=== PATIENT | male | born 1990 | race African-American/Black ===

== ENCOUNTER 2019-07-27 11:06 | Emergency (ER) | payer SELFPAY ==
[2019-07-27 11:15] VITALS: BP 128/103
[2019-07-27] MEDS ORDERED: METOCLOPRAMIDE HCL ORAL SOLN 10 MG/10 ML UDCUP PO ONE (11:19)
[2019-07-27] MEDS ORDERED: MAG HYDROX/AL HYDROX/SIMETH SUSP 30 ML UDCUP PO ONE (11:19)
[2019-07-27] MEDS ORDERED: LIDOCAINE 2% VISCOUS SOLN 15 ML UDCUP PO ONE (11:19)
[2019-07-27] MEDS ORDERED: NORMAL SALINE 1000 ML 1,000 ML IV PRN (11:21)
--- NOTE | 2019-07-27 11:23 | ER Document Report ---
ED Medical Screen (RME) - General Chief Complaint: Abdominal Pain Stated Complaint: ABDOMINAL PAIN Time Seen by Provider: 07/27/19 11:16 Mode of Arrival: Wheelchair Information source: Patient Notes: 28-year-old male presented to ED for complaint of severe gastritis. He states it started about a week ago. He states he has not had any nausea and vomiting. He states it started again this morning. He states he got better from last week and then returned again today. He states last week they told him he did not know what was causing it except maybe it was a smoking and drinking and his marijuana. He is alert oriented respirations regular nonlabored. He is moaning and very agitated. He states he has a history of asthma and gastritis and has not followed with a GI doctor as yet. I have greeted and performed a rapid initial assessment of this patient. A comprehensive ED assessment and evaluation of the patient, analysis of test results and completion of medical decision making process will be conducted by an additional ED providers. - Related Data Allergies/Adverse Reactions: orange juice Allergy (Verified 07/27/19 11:15) peanut Allergy (Verified 07/27/19 11:15) Penicillins Allergy (Verified 07/27/19 11:15) Physical Exam - Vital signs Vitals: Temp Pulse BP Pulse Ox 98.7 F 133 H 128/103 H 100 07/27/19 11:12 07/27/19 11:12 07/27/19 11:12 07/27/19 11:12 Course - Vital Signs Vital signs: Temp Pulse Resp BP Pulse Ox 98.7 F 133 H 128/103 H 100 07/27/19 11:12 07/27/19 11:12 07/27/19 11:12 07/27/19 11:12
[2019-07-27] MEDS: ONDANSETRON HCL INJ/PF 4 MG/2 ML SDV IV ONE ×2 (11:32→11:54)
--- NOTE | 2019-07-27 11:44 | ER Document Report ---
ED GI/ - General Chief Complaint: Abdominal Pain Stated Complaint: ABDOMINAL PAIN Time Seen by Provider: 07/27/19 11:16 Mode of Arrival: Wheelchair Notes: I signed up for the patient and went down to evaluate the patient and was informed by nursing that patient had thrown up the GI cocktail that was ordered for him out of the triage process, he then yelled at the staff and walked out. I did not have a chance to evaluate this patient or otherwise clinically treat him - Related Data Allergies/Adverse Reactions: orange juice Allergy (Verified 07/27/19 11:15) peanut Allergy (Verified 07/27/19 11:15) Penicillins Allergy (Verified 07/27/19 11:15) Past Medical History - General Information source: Patient - Social History Smoking Status: Current Every Day Smoker Chew tobacco use (# tins/day): No Frequency of alcohol use: Social Drug Abuse: Marijuana Family History: Other - unknown, patient eloped prior to my evlauation Patient has homicidal ideation: No Physical Exam - Vital signs Vitals: Temp Pulse BP Pulse Ox 98.7 F 133 H 128/103 H 100 07/27/19 11:12 07/27/19 11:12 07/27/19 11:12 07/27/19 11:12 Course - Vital Signs Vital signs: Temp Pulse Resp BP Pulse Ox 98.7 F 133 H 128/103 H 100 07/27/19 11:16 07/27/19 11:12 07/27/19 11:12 07/27/19 11:12 Discharge - Discharge Clinical Impression: Eloped from emergency department Condition: Fair Disposition: ELOPED
== END 2019-07-27 11:50 | disposition left against medical advice (07) ==
LOC: ER 11:06
DX: Z53.20 Procedure and treatment not carried out because of patient's decision for unspecified reasons (principal); R10.9 Unspecified abdominal pain; Z88.0 Allergy status to penicillin; F17.200 Nicotine dependence, unspecified, uncomplicated
CPT/HCPCS: 99281; J3490; J2405